=== PATIENT | female | born 1980 | race Caucasian/White ===

== ENCOUNTER 2018-04-15 22:08 | Emergency (ER) | payer BC ==
[~2018-04-15] VITALS: Ht 162.6 cm; Wt 54.4 kg
--- NOTE | 2018-04-15 22:20 | NUR ---
PT BIBS. COMP OF HAVING "S/P FALL. SLIPPED ON MY SONS BUNKBED AND LANDED ON MY R SIDE" -SOB. -N/V -DIZZINESS. -ACUTE DISTRESS. MD AT BEDSIDE.
[2018-04-15] MEDS ORDERED: HYDROCODONE/APAP 10/325MG 1 EA TABLET PO ONE (23:30)
[2018-04-15] MEDS ORDERED: HYDROCODONE/APAP 10/325MG 1 EA TABLET ONE (23:33)
[2018-04-16 01:24] VITALS: BP 116/76
== END 2018-04-16 01:39 | disposition home or self-care (01) ==
LOC: ER 22:11
DX: S20.211A Contusion of right front wall of thorax, initial encounter (principal); S50.01XA Contusion of right elbow, initial encounter; F41.9 Anxiety disorder, unspecified; F32.9 Major depressive disorder, single episode, unspecified; E03.9 Hypothyroidism, unspecified; Z90.89 Acquired absence of other organs; Z98.890 Other specified postprocedural states; W01.198A Fall on same level from slipping, tripping and stumbling with subsequent striking against other object, initial encounter; Y93.89 Activity, other specified; Y92.89 Other specified places as the place of occurrence of the external cause; Y99.8 Other external cause status
CPT/HCPCS: 71100-TC